=== PATIENT | male | born 1970 | race African-American/Black ===

== ENCOUNTER 2019-01-24 18:55 | Emergency (ER) | payer SELFPAY ==
[~2019-01-24] VITALS: Ht 175.3 cm; Wt 79.5 kg
[2019-01-24 19:03] VITALS: BP 147/95
== END 2019-01-24 20:45 | disposition left against medical advice (07) ==
LOC: EMS 18:56
DX: M79.672 Pain in left foot (principal); F10.20 Alcohol dependence, uncomplicated; F17.210 Nicotine dependence, cigarettes, uncomplicated; Y90.9 Presence of alcohol in blood, level not specified